=== PATIENT | female | born 1945 | race Caucasian/White ===

== ENCOUNTER 2016-10-19 08:11 | Observation (INO) | payer OTHER, MEDICARE ==
--- NOTE | 2016-10-19 09:41 | EDPHY ---
H & P Stated Complaint: HTN near syncope last night Time Seen by Provider: 10/19/16 09:24 HPI/ROS: CHIEF COMPLAINT: Near syncope HISTORY OF PRESENT ILLNESS: 71-year-old female lives by herself arrives via [employer] complaining of near syncopal episode last evening. She describes at 9:00 p.m. looking up at the alfie and feeling her surroundings dark in, lowered herself to the ground and symptoms resolved. She describes reproducible symptoms currently with hyper extension of the neck. Over the past few days she has been experiencing feeling off and intermittent dizziness which she has difficulty describing, however does not appear to be vertiginous in origin as she describes it present with no definitive pattern, not necessarily reproducible with movement of the head. She has not been experiencing headaches or chest pain or dyspnea. She denies visual field abnormality beyond the episode last evening however no spots or floaters in her visual field. No gait instability. No slurred speech. No urinary abnormality. No abdominal pain. No nausea or vomiting. No diarrhea. She contacted her primary care provider's office this morning in the recommend she go to the ER. I reviewed the patient's medication list at triage her only active medication is Travatan eyedrops. There are multiple other medications listed including Xarelto however this was only using her postoperative period post hip replacement several years ago. PRIMARY CARE PROVIDER:Dr. Woods, [place] REVIEW OF SYSTEMS: A ten point review of systems was performed and is negative with the exception of the items mentioned in the HPI PAST MEDICAL & SURGICAL HISTORY: Hip surgery. SOCIAL HISTORY:nonsmoker. No drug use. Intermittent glass of wine. Lives by herself PHYSICAL EXAM (Prior to examination, patient consented to physical exam, hands were washed and my usual and customary physical exam procedures followed) 1) GENERAL: Well-developed, well-nourished, alert and oriented. Appears to be in no acute distress. Answering questions appropriately 2) HEAD: Normocephalic, atraumatic 3) HEENT: Pupils equal, round, reactive to light bilaterally. Sclera anicteric. Nasopharynx, oropharynx, clear, no lesions. Signs of trauma Ears bilaterally with normal tympanic membranes. No evidence of infection. 4) NECK: Full range of motion, no meningeal signs. No bruit. With hyper extension of the neck she states things feels weird this resolved after normal anatomic alignment of the head and neck 5) LUNGS: Clear auscultation bilaterally, no wheezes, no rhonchi, no retractions. 6) HEART: Regular rate and rhythm, no murmur, no heave, no gallop. 7) ABDOMEN: No guarding, no rebound, no focal tenderness, negative McBurney's, 8) MUSCULOSKELETAL: Moving all extremities, no focal areas of tenderness, no obvious trauma. No peripheral edema or discoloration. 9) BACK: No CVA tenderness, no midline vertebral tenderness, no fluctuance, no step-off, no obvious trauma, no visual or palpable abnormality. 10) SKIN: No rash, no petechiae. 11) Psychiatric: Patient is oriented X 3, there is no agitation. 12) NEURO: Awake, alert, and oriented to person, place and time. Answers questions appropriately. There were no obvious focal neurologic abnormalities. No cerebellar dysfunction. Cranial nerves 2 through to 12 intact. Upper and lower extremities bilaterally with strength 5 / 5, reflexes 2+. DIFFERENTIAL DIAGNOSIS: in no particular include but limited to CVA, DE, vasculopathy - Personal History Current Tetanus/Diphtheria Vaccine: Yes Current Tetanus Diphtheria and Acellular Pertussis (TDAP): Yes - Medical/Surgical History Hx Asthma: No Hx Chronic Respiratory Disease: No Hx Diabetes: No Hx Cardiac Disease: No Hx Renal Disease: No Hx Cirrhosis: No Hx Alcoholism: No Hx HIV/AIDS: No Hx Splenectomy or Spleen Trauma: No Other PMH: HTN, Glaucoma, Cataracts - Social History Smoking Status: Former smoker Constitutional: Initial Vital Signs Temperature (C) 36.4 C 10/19/16 08:14 Heart Rate 86 10/19/16 08:14 Respiratory Rate 14 10/19/16 08:14 Blood Pressure 182/99 H 10/19/16 08:14 O2 Sat (%) 95 10/19/16 08:14 O2 Delivery Mode Room Air Allergies/Adverse Reactions: No Known Allergies Allergy (Unverified 07/21/14 11:21) Home Medications: Medication Instructions Recorded Calcium Carbonate [CALTRATE 600] 600 mg PO DAILY 07/21/14 Herbals/Supplements -Info Only 1 ea PO DAILY 07/21/14 Multivitamins [Multivitamin (*)] 1 each PO DAILY 07/21/14 Travoprost Z 0.004% [Travatan Z 1 drops EACHEYE HS 07/21/14 0.004% (*)] Naproxen Sodium [Aleve 220 MG (*)] 220 mg PO DAILY 10/19/16 Medical Decision Making - Diagnostics Imaging Results: Imaging Impressions Chest X-Ray 10/19/16 09:38 Impression: 1. Borderline cardiomegaly. No active cardiopulmonary disease seen. Head CT 10/19/16 09:41 Impression: There is no acute intracranial abnormality identified on this unenhanced CT evaluation. If there is further clinical concern regarding the patient's symptoms, MR imaging is suggested, if not otherwise contraindicated. The patient has also been scheduled for a CTA, which will be separately reviewed and reported. Findings were discussed with Betsy Medina PA-C at 11:14 AM, on 10/19/2016. Head CTA 10/19/16 09:41 Impression: 1. There is mild bilateral atherosclerotic calcific plaque involving each of the carotid bulbs. There is no hemodynamically significant ICA stenosis. 2. Patent bilateral vertebral arteries, with the left vertebral artery the more dominant of the 2 vessels. 3. Tortuosity with a slight "vascular kink" in the right innominate artery; however, there is patency of flow in the distal right innominate artery and the visualized right subclavian artery. CT ANGIOGRAPHY OF THE HEAD: The distal cervical, petrous, cavernous, and supraclinoid portions of the internal carotid arteries are patent. There is some atherosclerotic calcification associated with the parasellar portions of the ICAs without mechanical a significant stenosis. The A1 and A2 segments and the anterior communicating artery are patent. The M1, M2, M3 trifurcation vessels are patent. There are patent bilateral posterior communicating arteries which provide inflow into the posterior cerebral arteries ( circulatory variant). The right vertebral artery is a more diminutive vessel compared to the left, a normal variant. The posterior inferior and superior cerebellar arteries and the basilar artery are patent. There is no aneurysm, vascular malformation, significant eccentric stenosis, intraluminal thrombus, or dissection observed. The dural venous sinuses appear patent. Impression: Mild atherosclerotic changes associated with the cavernous carotid arteries. There is no intraluminal thrombus, or hemodynamically significant stenosis. CT Source Images: The visualized lung apices are clear. There are some minor dependent changes seen posteriorly. The visualized superior mediastinal structures are notable for narrowing of the crossing left innominate vein anterior to the common trunk of the left common carotid artery and the right innominate artery. There is asymmetric prominence of the left internal jugular vein, with several venous collaterals over the base of the left neck and the posterior upper left back. There is a 7 mm hypodense nodule in the right lobe of the thyroid gland. There is no cervical adenopathy. There are degenerative features of the cervical spine, with old mild compression deformities involving the anterior aspect of the C5 centrum and the posterior aspect of the C6 centra , with mild C4-C5, severe C5-C6, and moderate C6-C7 degenerative disk space narrowing. There is also severe left C5-C6 and moderate right C5-C6 neural foraminal stenosis secondary to osseous proliferative change. Impression: 1. Vascular narrowing of the crossing left innominate vein in the superior mediastinum with numerous venous collaterals and asymmetric enlargement of the left internal jugular vein compared to the right. 2. Multilevel degenerative changes in the cervical spine, most pronounced at C4- C5, C5-C6, and C6-C7, with severe left C5-C6 and moderate right C5-C6 neural foraminal stenosis. There are old compression deformities of the C5 and C6 centra. Findings were discussed with Betsy Medina PA-C at 11:49 AM, on 10/19/2016. Measurement of carotid stenosis is based on velocity parameters that correlate the residual internal carotid diameter with [place] Symptomatic Carotid Endarterectomy Trial (NASCET) based stenosis levels. Neck CTA 10/19/16 09:41 Impression: 1. There is mild bilateral atherosclerotic calcific plaque involving each of the carotid bulbs. There is no hemodynamically significant ICA stenosis. 2. Patent bilateral vertebral arteries, with the left vertebral artery the more dominant of the 2 vessels. 3. Tortuosity with a slight "vascular kink" in the right innominate artery; however, there is patency of flow in the distal right innominate artery and the visualized right subclavian artery. CT ANGIOGRAPHY OF THE HEAD: The distal cervical, petrous, cavernous, and supraclinoid portions of the internal carotid arteries are patent. There is some atherosclerotic calcification associated with the parasellar portions of the ICAs without mechanical a significant stenosis. The A1 and A2 segments and the anterior communicating artery are patent. The M1, M2, M3 trifurcation vessels are patent. There are patent bilateral posterior communicating arteries which provide inflow into the posterior cerebral arteries ( circulatory variant). The right vertebral artery is a more diminutive vessel compared to the left, a normal variant. The posterior inferior and superior cerebellar arteries and the basilar artery are patent. There is no aneurysm, vascular malformation, significant eccentric stenosis, intraluminal thrombus, or dissection observed. The dural venous sinuses appear patent. Impression: Mild atherosclerotic changes associated with the cavernous carotid arteries. There is no intraluminal thrombus, or hemodynamically significant stenosis. CT Source Images: The visualized lung apices are clear. There are some minor dependent changes seen posteriorly. The visualized superior mediastinal structures are notable for narrowing of the crossing left innominate vein anterior to the common trunk of the left common carotid artery and the right innominate artery. There is asymmetric prominence of the left internal jugular vein, with several venous collaterals over the base of the left neck and the posterior upper left back. There is a 7 mm hypodense nodule in the right lobe of the thyroid gland. There is no cervical adenopathy. There are degenerative features of the cervical spine, with old mild compression deformities involving the anterior aspect of the C5 centrum and the posterior aspect of the C6 centra , with mild C4-C5, severe C5-C6, and moderate C6-C7 degenerative disk space narrowing. There is also severe left C5-C6 and moderate right C5-C6 neural foraminal stenosis secondary to osseous proliferative change. Impression: 1. Vascular narrowing of the crossing left innominate vein in the superior mediastinum with numerous venous collaterals and asymmetric enlargement of the left internal jugular vein compared to the right. 2. Multilevel degenerative changes in the cervical spine, most pronounced at C4- C5, C5-C6, and C6-C7, with severe left C5-C6 and moderate right C5-C6 neural foraminal stenosis. There are old compression deformities of the C5 and C6 centra. Findings were discussed with Betsy Medina PA-C at 11:49 AM, on 10/19/2016. Measurement of carotid stenosis is based on velocity parameters that correlate the residual internal carotid diameter with [place] Symptomatic Carotid Endarterectomy Trial (NASCET) based stenosis levels. ED Course/Re-evaluation: 9:42 a.m.: This patient has a nonfocal neurologic examination. When she got up to go to the bathroom she had near syncopal symptoms and I had to hold her score her back to the bed. Discussed the case with secondary supervising physician Dr. Goodman will perform diagnostic studies including troponin, D- dimer, chest x-ray, imaging of the head and neck as she describes reproducible near syncopal symptoms with hyper extension of the neck, similar to last evening which he was looking up at the alfie. 12:15 p.m.: Patient was re-evaluated with serial examinations. On repeated instances and attempts at attempts to ambulate the patient she is unable to ambulate by herself noting that she feels near syncopal symptoms. Had a lengthy discussion with her and she describes symptoms which do not appear to be vertiginous in origin she describes feeling like the room is starting to black out. We discussed her imaging results and there was noted to be a kink in the right innominate artery which may be contributing to her reproducible symptoms with certain movements of the neck. Overall we recommended admission to the hospital and she is agreeable with this. I d consulted with , admit to Dr Valentin. - Data Points Laboratory Results: Laboratory Results 10/19/16 09:55 10/19/16 09:55 10/19/16 10/19/16 10/19/16 10:10 09:55 09:55 WBC RBC Hgb Hct MCV MCH MCHC RDW Plt Count MPV Neut % (Auto) Lymph % (Auto) Aiken % (Auto) Eos % (Auto) Baso % (Auto) Nucleat RBC Rel Count Absolute Neuts (auto) Absolute Lymphs (auto) Absolute Monos (auto) Absolute Eos (auto) Absolute Basos (auto) Absolute Nucleated RBC Immature Gran % Immature Gran # D-Dimer < 0.27 ug/mLFEU ug/mLFEU (0.00-0.50) Sodium 142 mEq/L mEq/L (134-144) Potassium 4.2 mEq/L mEq/L (3.5-5.2) Chloride 107 mEq/L mEq/L (97-110) Carbon Dioxide 24 mEq/l mEq/l (22-31) Anion Gap 11 mEq/L mEq/L (8-16) BUN 16 mg/dL mg/dL (7-23) Creatinine 0.5 mg/dL L mg/dL (0.6-1.0) Estimated GFR > 60 Glucose 94 mg/dL mg/dL (70-100) Calcium 9.9 mg/dL mg/dL (8.5-10.4) Troponin I < 0.012 ng/mL ng/mL (0-0.034) Urine Color PALE YELLOW Urine Appearance CLEAR Urine pH 7.0 (5.0-7.5) Ur Specific [place] 1.006 (1.002-1.030) Urine Protein NEGATIVE (NEGATIVE) Urine Ketones NEGATIVE (NEGATIVE) Urine Blood NEGATIVE (NEGATIVE) Urine Nitrate NEGATIVE (NEGATIVE) Urine Bilirubin NEGATIVE (NEGATIVE) Urine Urobilinogen NEGATIVE EU EU (0.2-1.0) Ur Leukocyte Esterase NEGATIVE (NEGATIVE) Urine RBC 1-3 /hpf /hpf (0-3) Urine WBC NONE SEEN /hpf /hpf (0-3) Ur Epithelial Cells NONE SEEN /lpf /lpf (NONE-1+) Urine Glucose NEGATIVE (NEGATIVE) 10/19/16 09:55 WBC 5.18 10^3/uL 10^3/uL (3.80-9.50) RBC 4.68 10^6/uL 10^6/uL (4.18-5.33) Hgb 15.7 g/dL g/dL (12.6-16.3) Hct 45.4 % % (38.0-47.0) MCV 97.0 fL fL (81.5-99.8) MCH 33.5 pg pg (27.9-34.1) MCHC 34.6 g/dL g/dL (32.4-36.7) RDW 12.1 % % (11.5-15.2) Plt Count 185 10^3/uL 10^3/uL (150-400) MPV 10.2 fL fL (8.7-11.7) Neut % (Auto) 64.5 % % (39.3-74.2) Lymph % (Auto) 24.9 % % (15.0-45.0) Aiken % (Auto) 7.7 % % (4.5-13.0) Eos % (Auto) 2.1 % % (0.6-7.6) Baso % (Auto) 0.4 % % (0.3-1.7) Nucleat RBC Rel Count 0.0 % % (0.0-0.2) Absolute Neuts (auto) 3.34 10^3/uL 10^3/uL (1.70-6.50) Absolute Lymphs (auto) 1.29 10^3/uL 10^3/uL (1.00-3.00) Absolute Monos (auto) 0.40 10^3/uL 10^3/uL (0.30-0.80) Absolute Eos (auto) 0.11 10^3/uL 10^3/uL (0.03-0.40) Absolute Basos (auto) 0.02 10^3/uL 10^3/uL (0.02-0.10) Absolute Nucleated RBC 0.00 10^3/uL 10^3/uL (0-0.01) Immature Gran % 0.4 % % (0.0-1.1) Immature Gran # 0.02 10^3/uL 10^3/uL (0.00-0.10) D-Dimer Sodium Potassium Chloride Carbon Dioxide Anion Gap BUN Creatinine Estimated GFR Glucose Calcium Troponin I Urine Color Urine Appearance Urine pH Ur Specific [place] Urine Protein Urine Ketones Urine Blood Urine Nitrate Urine Bilirubin Urine Urobilinogen Ur Leukocyte Esterase Urine RBC Urine WBC Ur Epithelial Cells Urine Glucose Departure - Departure Disposition: [facility] Acute Clinical Impression: Near syncope Condition: Fair
[2016-10-19 10:04] LABS: % IMMATURE GRANULYOCYTES 0.4 % (0.0-1.1); ABSOLUTE IMMATURE GRANULOCYTES 0.02 10^3/uL (0.00-0.10); ADD DIFF? NO; ADD MORPH? NO; ADD SCAN? NO; ATYPICAL LYMPHOCYTE FLAG 10 (0-99); FRAGMENT RBC FLAG 0 (0-99); HEMATOCRIT 45.4 % (38.0-47.0); HEMOGLOBIN 15.7 g/dL (12.6-16.3); LEFT SHIFT FLG 0 (0-99); LIPEMIA HEMOLYSIS FLAG 90 (0-99); MEAN CELL HEMOGLOBIN 33.5 pg (27.9-34.1); MEAN CELL HEMOGLOBIN CONCENTR. 34.6 g/dL (32.4-36.7); MEAN PLATELET VOLUME 10.2 fL (8.7-11.7); PLATELET CLUMPS FLAG 0 (0-99); PLATELET COUNT 185 10^3/uL (150-400); RED BLOOD CELL COUNT 4.68 10^6/uL (4.18-5.33); RED CELL DISTRIBUTION WIDTH 12.1 % (11.5-15.2)
--- NOTE | 2016-10-19 10:07 | CPEKG ---
Heart Rate: 69 RR Interval: 870 P-R Interval: 136 QRSD Interval: 88 QT Interval: 404 QTC Interval: 433 P [place]: 49 QRS [place]: 29 T Wave [place]: 28 EKG Severity - NORMAL ECG - EKG Impression: SINUS RHYTHM Electronically Signed By: Ashley Goodman 19-Oct-2016 15:14:51
[2016-10-19 10:21] LABS: ANION GAP 11 mEq/L (8-16); CALCIUM 9.9 mg/dL (8.5-10.4); CARBON DIOXIDE 24 mEq/l (22-31); CHLORIDE 107 mEq/L (97-110); CREATININE 0.5 mg/dL (0.6-1.0); GLOMERULAR FILTRATION RATE > 60; GLUCOSE 94 mg/dL (70-100); POTASSIUM 4.2 mEq/L (3.5-5.2); SODIUM 142 mEq/L (134-144)
[2016-10-19 10:21] LABS: COLOR PALE YELLOW; LEUKOCYTE ESTERASE,URINE NEGATIVE (NEGATIVE); NITRITE,URINE NEGATIVE (NEGATIVE)
[2016-10-19 10:23] LABS: TROPONIN I < 0.012 ng/mL (0-0.034)
[2016-10-19 10:28] LABS: WBC,URINE NONE SEEN /hpf (0-3)
[2016-10-19] MEDS ORDERED: IOPAMIDOL (ISOVUE 370) 100 ML BTL IV ONE (10:29)
[2016-10-19] MEDS ORDERED: ONDANSETRON DISINTEGRATING 4 MG TAB PO PRN (13:19)
[2016-10-19] MEDS ORDERED: ACETAMINOPHEN 325 MG TAB PO PRN (13:19)
[2016-10-19] MEDS ORDERED: ONDANSETRON 4 MG/2 ML VIAL IVP PRN (13:19)
[2016-10-19] MEDS ORDERED: hydrALAZINE 25 MG TAB PO PRN (15:48)
[2016-10-19] MEDS ORDERED: GADOBUTROL 10 ML VIAL IVP ONE (19:33)
--- NOTE | 2016-10-19 19:47 | GHP ---
[f rep st] HISTORY AND PHYSICAL DATE OF ADMISSION: 10/19/2016 CHIEF COMPLAINT: Near syncope. HISTORY OF PRESENT ILLNESS: The patient is a 71-year-old female with no significant past medical hi story, presenting with presyncopal symptoms and dizziness since Saturday. She says since that time s he has been feeling dizzy on an off. She has felt more foggy in the head and feels like there is so mething moving in the head, but nothing is moving. There is no sensation of objects moving around h er. She reports dizziness with bending down. Yesterday she was looking up at the alfie and felt her vision go black, thus she lowered herself to th e ground and symptoms resolved. She describes reproducible symptoms with hyperextension of her neck . It is not necessarily reproducible with movement of her head to the left and right. She denies a ny fevers, chills, or sweats. No headaches, no numbness or tingling. No chest pain or shortness of breath. No lower extremity edema. No weakness or dysarthria. She has felt off balance, but has n ot fallen. She normally does Pilates and Yoga several times a week, but she could not do her Pilate s this week due to dizziness. She states she has been eating and drinking okay. The patient reports yesterday her blood pressure was systolic 190/100. She said the last time she checked her blood pressure was 2 years ago. In the emergency room her blood pressure was as high as 148/104. Orthostatics were negative. REVIEW OF SYSTEMS: I completed a 10-point review of systems, negative except as noted in HPI. PAST MEDICAL HISTORY: Glaucoma. PAST SURGICAL HISTORY: 1. Left hip. 2. Knee arthroscopy. 3. Intra-ocular implants. FAMILY HISTORY: Mother of a heart attack. ALLERGIES: No known drug allergies. HOME MEDICATIONS: Atenolol eye drops, naproxen, multivitamin, herbal supplement, calcium, Travopros t eyedrops. PHYSICAL EXAM: VITAL SIGNS: Temperature 36.7, blood pressure 151/82 with a range of 148-182 over 9 9-104. Heart rate 70s, respirations 16, 95% on room air. GENERAL: Patient is sitting up in bed, n o acute distress. HEENT: PERRLA, EOMI. Moist mucous membranes. CV: Regular rate and rhythm. No murmurs, gallops, rubs. LUNGS: Clear to auscultation bilaterally. ABDOMEN: Soft, nontender, non distended. Positive bowel sounds. MUSCULOSKELETAL: 5/5 upper and lower extremity strength. NEURO LOGIC: 2 through 12 intact. Negative pronator drift. Normal reflexes bilaterally in ankles, knees . Normal [id number] test. Normal sensation to touch. PSYCH: Alert and oriented x3. LABORATORY: WBCs 5, hemoglobin 15, hematocrit 45, platelets 185, dimer is negative. Sodium ___ potassium 4.2, chloride 107, BUN 16, creatinine 0.6, glucose 94, troponin less than 0.012. Head CT: No acute intracranial abnormality. CTA: There is mild bilateral atherosclerotic calcific plaque involving each of the carotid bulbs. There is no hemodynamically significant ICA stenosis. There is tortuosity with a slight vascular kink in the right innominate artery; however, there is p atency of flow in the distal right innominate artery and visualized right subclavian. ASSESSMENT/PLAN: 1. Dizziness: Differential includes orthostasis, dehydration, infection versus acute stroke. CT h ead and CTA of the head and neck were unremarkable. There was a finding of a kink in the right inno minate artery; however, there was flow within that artery as well as the right subclavian. Suspect this is an incidental finding. With reported imbalance would be concern for cerebellar infarct. An MRI of brain is pending. Will discuss the case with Neurology. Could consider vascular etiology, will discuss further with Surgery. No evidence of infection. Afebrile without leukocytosis. Urina lysis is negative. Query if elevated blood pressure could be contributing. 2. Accelerated hypertension: Patient states she has no history of this. We will monitor overnight , p.r.n. hydralazine. If remains persistent will add an antihypertensive. 3. Glaucoma: Continue home eyedrops. 4. Diet regular. 5. Deep venous thrombosis prophylaxis: Low risk, ambulatory. DISPOSITION: Patient warrants observation admission given acute dizziness and concern for possible CVA. MRI is pending. /[id number]/MODL
[2016-10-19] MEDS ORDERED: TRAVOPROST Z 0.004% 2.5 ML OPHT.BTL EACHEYE SCH (21:00)
[2016-10-19] MEDS: TIMOLOL 0.5% 15 ML OPHT.BTL EACHEYE SCH (22:03)
[2016-10-20] MEDS: TIMOLOL 0.5% 15 ML OPHT.BTL EACHEYE SCH (09:00)
[2016-10-20] MEDS ORDERED: CALCIUM CARBONATE 600 MG PO SCH (09:00)
[2016-10-20] MEDS ORDERED: CALCIUM CARB W/VIT D 500 MG TAB PO SCH (09:00)
[2016-10-20] MEDS ORDERED: MULTIVITAMINS 1 EACH TAB PO SCH (09:00)
[2016-10-20] MEDS ORDERED: Herbals/Supplements -Info Only PO SCH (09:00)
[2016-10-20 11:55] VITALS: BP 126/75; PULSE 74; RESP 16; TEMP 97.5; O2SAT 91
--- NOTE | 2016-10-20 13:59 | GDS ---
[f rep st] DISCHARGE SUMMARY DISCHARGE DIAGNOSES: 1. Dizziness. 2. Accelerated hypertension. 3. History of glaucoma. HISTORY OF PRESENT ILLNESS: The patient is a 71-year-old female with no significant past medical history. She is very active with Pilates and yoga. Presenting with presyncopal symptoms and dizziness since Saturday. She says she will intermittently have dizziness, more noted when she looks up or bends over. She also reports feeling more foggy in the head. It feels like there is something moving in her head, but there is nothing moving around her. The day prior to admission, she was looking at the alfie and felt her vision go dim, but she did not lose it completely. She lowered herself to the ground and symptoms resolved. She denies any fevers, chills, or sweats. No recent URI symptoms. No chest pain, no shortness of breath. No weakness or dysarthria. She normally does Pilates and yoga several times a week, but not could not do her Pilates this week due to dizziness. She reports normal p.o. intake. The day prior to admission, she reported her blood pressure at home being 190/ 100. In the emergency room, her highest blood pressure was 148/104. She had negative orthostatics. HOSPITAL COURSE BY PROBLEM: 1. Dizziness: Differential includes orthostasis, dehydration, infection versus acute stroke. CT head and MRI were negative for hemorrhage. CTA did demonstrate a finding of a kink in the right innominate artery. I reviewed this with the radiologist and it shows that she does have no significant stenosis and good flow through the vertebral arteries. Suspect this is an incidental finding. Recommend follow up with Vascular Surgery to monitor this. Her urinalysis was negative. She remains afebrile, so infection less likely. EKG and troponin were negative. I wonder if her elevated blood pressure was contributing some of her symptoms. This morning, patient is that she was feeling much better. If symptoms recur, patient is to follow up with her PCP. 2. Accelerated hypertension: Patient said she had not checked her blood pressure in 2 years, up until a couple of days ago. During the rest of her stay here, blood pressures ranged systolic 120s to 150s. I recommend that she keep a log this weekend and followup follow up with her PCP. I wonder if this may have contributed to some of her symptoms. If high as an outpatient, I would recommend an antihypertensive. She will follow up with her PCP next week. 3. Glaucoma: Continue home eyedrops. DISPOSITION: The patient is stable for discharge. MEDICATIONS: No new medications. DISCHARGE INSTRUCTIONS: 1. Keep blood pressure log. 2. Follow up with her PCP at [facility]. /[id number]/MODL MTDD
== END 2016-10-20 13:49 | disposition home or self-care (01) ==
LOC: F3N 15:09
PROVIDERS: ADMIT Internal Medicine; ATTEND Internal Medicine
DX: R42 Dizziness and giddiness (principal); I10 Essential (primary) hypertension; I70.8 Atherosclerosis of other arteries; M50.921 Unspecified cervical disc disorder at C4-C5 level; M50.922 Unspecified cervical disc disorder at C5-C6 level
CPT/HCPCS: 70450; 70496; 70498; 70553; 71010; 93005; 97161; 99285; A9585; G0378; G8978; G8979; G8980; Q9967

== ENCOUNTER 2017-03-16 10:19 | Inpatient (IN) | payer OTHER, MEDICARE ==
--- NOTE | 2017-03-16 10:33 | EDPHY ---
General Narrative: CHIEF COMPLAINT: Fall exercising, right shoulder pain HISTORY OF PRESENT ILLNESS: Patient was exercising just prior to arrival when she tripped, landing on her right side. She complains of pain in the right shoulder. She complains of pain in the right hip and left groin. She attributes the groin hip pain to soft tissue, but the shoulder is in severe pain. Painful ambulation. Unable to move the shoulder due to pain. No numbness or tingling. No head strike or loss of consciousness no neck pain. No back or chest pain. No abdominal pain. No pain in the lower left or right legs. No other associated complaints or modifying factors. She arrives by EMS and is seen at time of arrival with a sling on the right upper extremity. ESTABLISHED ORTHOPEDIST: None currently. Remote MARIAN on the left REVIEW OF SYSTEMS: Ten systems reviewed and are negative unless otherwise noted in the HPI PAST MEDICAL HISTORY: Arthritis, glaucoma PAST SURGICAL HISTORY: Left hip arthroplasty SOCIAL HISTORY: Nonsmoker. Retired [employer] HISTORY: Noncontributory EXAMINATION General Appearance: Alert, no distress Cardiovascular: Pulses normal throughout. Symmetric radial pulses 2+. Symmetric DP pulses 2+. Brisk cap refill Cardiac: Regular rhythm. No murmur Respiratory: Lungs are clear in all pineda. No retractions or distress Neurological: A&O, sensory symmetric, strength symmetric. No wrist drop of the right upper extremity. Skin: Warm and dry, no rash no lacerations abrasions or contusions Extremities: Tenderness of the right shoulder with apparent step-off deformity. No tenderness of the right elbow, wrist or hand. Range of motion of the left upper extremity is fully intact. Range of motion of the lower extremities is intact with painful abduction of both hips. She is neurovascular intact distal to the right shoulder pain. Psychiatric: Mood and affect normal DIFFERENTIAL DIAGNOSES: Including but not limited to shoulder dislocation, humeral fracture, hip fracture, hip strain, pelvic fracture, a muscular strain MDM: 10:25 a.m. Mechanical fall with right shoulder pain. She is neuro intact distally. X-ray has been ordered. No other areas of injury or concern. 10:40 a.m. X-ray as read by me reveals a anterior dislocation. I will attempt closed reduction with IV fentanyl and intra-articular lidocaine. No conscious sedation at this time. 11:02 a.m. 100 mcg of fentanyl infused. I injected 7 cc of plain lidocaine into the joint applied traction, scapular manipulation and she does appear to have reduced. I will obtain an x-ray to confirm. She remains neurovascular intact. 11:10 a.m. X-ray performed at bedside as read by me, reveals a well reduced shoulder. I do not appreciate any fracture. She remains neuro intact will place her in a sling. 11:35 a.m. Patient re-evaluated. The x-ray has been read as successful reduction. No obvious fracture. She remains neuro intact. Her pain is minimal at this time. We discussed precautions for the shoulder. We discussed nonweightbearing of the right shoulder. We discussed orthopedic follow-up early next week. We discussed ED precautions. She is comfortable this plan and discharged home stable condition. 12:15 p.m. Patient was initially placed up for disposition. However, when she was ambulated at time of discharge she is having too much pain when doing so. The pain is located the right groin and hip. On examination this appears to be the adductor muscles, but I will order an x-ray to evaluate the hip. She is agreeable with this. 12:55 p.m. X-ray as read by me reveals no fracture or dislocation. Attempt to ambulate the patient again. 1:05 p.m. Patient is feeling her road test. And additionally, I have now discussed the case with radiologist. He has pointed out a left superior pubic ramus fracture. I did not see this on 1st examination of the x-ray. He does agree that there is no hip fracture. The left hip hardware appears to be intact. I will contact hospitalist for admission as this is a nonsurgical fracture, but she does live at home alone and will need evaluation for DM in physical therapy. She is agreeable with this plan. She is neuro intact. 1:15 p.m. Case discussed with hospitalist Latricia Fairchild. Patient will be admitted to Dr. Montejo. I will consult Orthopedics for the injuries. She is admitted in stable condition. 2:00 p.m. Case discussed with on-call orthopedist Dr. Cervantes. He will provide consultation. Patient is to be toe-touch weight-bearing with walker. PROCEDURE: Closed reduction of right shoulder Consent: Verbal Location: Right shoulder Anesthesia: 100 mcg IV fentanyl. Lidocaine plain, 1%. 7 mL as intra- articular injection. No procedural sedation Procedure: Verbal consent obtained prior to administration of the IV fentanyl. Radial pulses intact prior to procedure. Down retraction, scapular manipulation and physical manipulation of the humeral head were performed. There was good reduction palpable. Radial pulses intact postprocedure. Feeling significantly better. Complications: None Post-reduction film: Successful reduction. - Diagnostics Imaging Results: Imaging Impressions Shoulder X-Ray 03/16/17 10:24 Impression: 1. Anterior dislocated right shoulder. 2. No definite fracture. Shoulder X-Ray 03/16/17 11:02 Impression: 1. No residual dislocation of the right shoulder. 2. No definite fracture. - History Smoking Status: Former smoker - Objective Vital Signs: Initial Vital Signs Temperature (C) 97.5 F 03/16/17 10:19 Heart Rate 63 03/16/17 10:19 Respiratory Rate 16 03/16/17 10:19 Blood Pressure 158/89 H 03/16/17 10:19 O2 Sat (%) 99 03/16/17 10:19 O2 Delivery Mode Room Air O2 (L/minute) 2 Allergies/Adverse Reactions: No Known Allergies Allergy (Unverified 07/21/14 11:21) Home Medications: Medication Instructions Recorded Calcium Carbonate [CALTRATE 600] 600 mg PO DAILY 07/21/14 Herbals/Supplements -Info Only 1 ea PO DAILY 07/21/14 Multivitamins [Multivitamin (*)] 1 each PO DAILY 07/21/14 Travoprost Z 0.004% [Travatan Z 1 drops EACHEYE HS 07/21/14 0.004% (*)] Timolol 0.5% [TIMOPTIC 0.5% (*)] 1 drops EACHEYE BID 10/19/16 Lisinopril 03/16/17 Medications Given: Discontinued Medications Fentanyl (Sublimaze) 100 mcg IVP EDNOW ONE Stop: 03/16/17 10:50 Last Admin: 03/16/17 10:53 Dose: 100 mcg Departure - Departure Disposition: [facility] Inpatient Acute Clinical Impression: Dislocation, shoulder closed Qualifiers: Encounter type: initial encounter Laterality: right Qualified Code(s): S43.004A - Unspecified dislocation of right shoulder joint, initial encounter Fracture of superior ramus of left pubis Qualifiers: Encounter type: initial encounter Fracture type: closed Qualified Code(s): S32.512A - Fracture of superior rim of left pubis, initial encounter for closed fracture Condition: Good Instructions: Shoulder Dislocation (ED) Additional Instructions: 1. Nonweightbearing of the right shoulder until seen by Orthopedics 2. Pain medication as prescribed as needed 3. ED precautions as discussed 4. No driving until seen by Orthopedics Referrals: Patient,NotPresent [Unknown] - As per Instructions Shane Cervantes MD [Medical Doctor] - As per Instructions Prescriptions: oxyCODONE HCL/ACETAMINOPHEN [Percocet 5-325 mg Tablet] 1 each PO Q4-6PRN PRN # 19 tablet PRN Reason: Pain, Breakthrough
[2017-03-16] MEDS ORDERED: fentaNYL 100 MCG/2 ML INJ IVP ONE (10:49)
[2017-03-16] MEDS ORDERED: ONDANSETRON 4 MG/2 ML VIAL IVP PRN (14:41)
[2017-03-16] MEDS ORDERED: ONDANSETRON DISINTEGRATING 4 MG TAB PO PRN (14:41)
[2017-03-16] MEDS ORDERED: HYDROmorphONE/DILAUDID 1 MG/ML INJ IVP PRN (14:41)
[2017-03-16] MEDS ORDERED: ACETAMINOPHEN 325 MG TAB PO PRN (14:41)
[2017-03-16] MEDS: OXYCODONE/APAP 5/325 TAB PO PRN ×2 (15:33→20:03)
--- NOTE | 2017-03-16 15:53 | GHP ---
[f rep st] HISTORY AND PHYSICAL DATE OF ADMISSION: 03/16/2017 PRIMARY CARE PHYSICIAN: [facility]. CHIEF COMPLAINT: Right shoulder dislocation and pelvic pain. HISTORY OF PRESENT ILLNESS: The patient is a pleasant 71-year-old female, with a past medical histor y of glaucoma and hypertension, who presented to [facility] emergency room after havi ng a fall while she was exercising. X-ray imaging of her right shoulder, showed an anterior dislocat ion, this was addressed in the emergency room and follow up x-ray of the right shoulder showed no res idual dislocation. She also received an x-ray of her hip, which revealed left superior pubic ramus f racture. The patient was making arrangements to go home from the emergency room, however, she had si gnificant pain and was unable to adequately ambulate, as such she is being admitted for pain control and also to work with PT and OT to formulate a plan for discharge from the hospital. PAST MEDICAL HISTORY: 1. Hypertension. 2. Glaucoma. PAST SURGICAL HISTORY: 1. Total left hip arthroplasty. 2. Knee arthroscopy. 3. Intraocular implants. FAMILY HISTORY: Mother and father are both , they in their 90s of "old age." ALLERGIES: No known drug allergies. MEDICATIONS: 1. Lisinopril 5 mg daily. 2. Timolol 0.5% eyedrops. 3. Travoprost Z 0.004% eyedrops daily. SOCIAL HISTORY: The patient is a nonsmoker. Full code status. REVIEW OF SYSTEMS: CONSTITUTIONAL: No complaints of any fever or chills. ENT: No recent upper res piratory illnesses. CARDIOVASCULAR: No complaints of chest pains, palpitations. There were no sync opal episodes associated with the fall. RESPIRATORY: No complaints of shortness of breath or productive cough. GI: No nausea, vomiting, diarrhea or constipation. : No report of any difficulty with urination. NEUROLOGIC: No complaints of headache or focal weak. HEMATOLOGIC: No history of any deep vein th rombosis or pulmonary embolism. PSYCHIATRIC: No history of anxiety or depression. ENDOCRINE: No h istory of diabetes or thyroid abnormalities. SKIN: No new skin rashes. MUSCULOSKELETAL: Other donna n the right hip and right shoulder, no other focal joint pains. PHYSICAL EXAMINATION: VITAL SIGNS: Temperature 36.8, blood pressure 136/62, heart rate 86, respirat ions 16, satting 95% on room air. GENERAL: The patient wake, alert, conversant. Able to provide a good history. No acute distress. HEENT: Extraocular movements appear intact. No scleral icterus. Mucous membranes moist. NECK: Supple no thyroid enlargement is appreciated. CHEST: Clear on ausc ultation. Normal respiratory effort. HEART: Regular. No murmurs appreciated. ABDOMEN: Nondistend ed. normal bowel sounds. Nontender with palpations. : No Monique catheter in place. EXTREMITIES: No significant pitting edema. NEUROLOGIC: The patient is able to lift her right leg against pressu re, I would rate it as 5/5 strength, although, she reports significant pain with weight bearing. Oth erwise, 5/5 strength in left extremity, limited testing of the right secondary to bracing. LABS: No current labs. IMAGING: As detailed in the HPI. ASSESSMENT: 1. Right hip pain. Imaging is showing a left superior pubic ramus fracture. We will need to see ho w she does with physical therapy and occupational therapy, and pain control over the next 24 hours. Continue with oxycodone/acetaminophen 5/325 one to two tablets every 4 hours as needed for pain. We also do have an IV Dilaudid ordered in case of severe or breakthrough pain. 2. Right shoulder dislocation. The pain seems reasonably well controlled currently. Continue with brace. We will also touch base with orthopedic surgery to determine if there is any additional recom mendations regarding the right shoulder and right hip. 3. Hypertension. We will plan on continuing her current Lisinopril at 5 mg daily. 4. Bowel and bladder. We will plan on starting MiraLAX and Metamucil daily, anticipating the need o f narcotic pain medications for adequate pain relief. 5. Deep vein thrombosis prophylaxis. We will obtain a CBC in the morning, if there is no concern ab out bleeding with the pelvic fracture, then we will plan on starting heparin. DISPOSITION: Will depend on how she does with PT and OT over the coming 24 hours and also to see whe re we are at with her pain control. I anticipate she will be her for over 2 midnights, probably 3 to 5 days to work on her mobility and p ain control. Copy requested to: [facility] /[id number]/MODL
--- NOTE | 2017-03-16 16:22 | PDMN ---
Medical Necessity Medical necessity: C/M review: est. > 2 MN LOS for eval and TX of acute and persistent right hip pain, left superior pubic ramus fracture, right shoulder dislocation reduced in ED, requiring ongoing pain management, acute inpt PT/OT, multiple comorbidities including fall while exercising just prior to this admission, hypertension, glaucoma per H/P.
[2017-03-16 19:31] VITALS: RESP 16
[2017-03-16] MEDS: TIMOLOL 0.5% 15 ML OPHT.BTL EACHEYE SCH (20:13)
[2017-03-16] MEDS ORDERED: TRAVOPROST Z 0.004% 2.5 ML OPHT.BTL EACHEYE SCH (21:00)
[2017-03-17] MEDS: OXYCODONE/APAP 5/325 TAB PO PRN ×2 (02:44→10:33)
[2017-03-17 05:18] LABS: % IMMATURE GRANULYOCYTES 0.3 % (0.0-1.1); ABSOLUTE IMMATURE GRANULOCYTES 0.02 10^3/uL (0.00-0.10); ADD DIFF? NO; ADD MORPH? NO; ADD SCAN? NO; ATYPICAL LYMPHOCYTE FLAG 0 (0-99); FRAGMENT RBC FLAG 0 (0-99); HEMATOCRIT 36.6 % (38.0-47.0); HEMOGLOBIN 13.1 g/dL (12.6-16.3); LEFT SHIFT FLG 0 (0-99); LIPEMIA HEMOLYSIS FLAG 90 (0-99); MEAN CELL HEMOGLOBIN 34.8 pg (27.9-34.1); MEAN CELL HEMOGLOBIN CONCENTR. 35.8 g/dL (32.4-36.7); MEAN CELL VOLUME 97.3 fL (81.5-99.8); MEAN PLATELET VOLUME 10.3 fL (8.7-11.7); PLATELET CLUMPS FLAG 0 (0-99); PLATELET COUNT 155 10^3/uL (150-400); RED BLOOD CELL COUNT 3.76 10^6/uL (4.18-5.33); RED CELL DISTRIBUTION WIDTH 12.2 % (11.5-15.2)
[2017-03-17 05:27] LABS: ANION GAP 9 mEq/L (8-16); CALCIUM 9.2 mg/dL (8.5-10.4); CARBON DIOXIDE 26 mEq/l (22-31); CHLORIDE 104 mEq/L (97-110); CREATININE 0.6 mg/dL (0.6-1.0); GLOMERULAR FILTRATION RATE > 60; GLUCOSE 94 mg/dL (70-100); POTASSIUM 4.4 mEq/L (3.5-5.2); SODIUM 139 mEq/L (134-144)
[2017-03-17 08:36] VITALS: O2SAT 91
--- NOTE | 2017-03-17 08:50 | GCON ---
[f rep st] CONSULTATION ORTHOPEDIC CONSULTATION DATE OF CONSULTATION: 03/17/2017 REASON FOR CONSULTATION: 1. Pubic rami fracture, left. 2. Status post closed reduction, first time dislocation right shoulder. HISTORY OF PRESENT ILLNESS: The patient is a 71-year-old female, who was working out with her traine r doing some lateral shuffling movements in the gym when she fell and landed directly onto the right side of her body and sustained a right shoulder dislocation that was closed reduced in the emergency department. X-ray of the pelvis showed an intact left total hip prosthesis with a minimally displace d superior rami fracture near her symphysis pubis on the left. No acute fractures noted in the right hip. She was admitted to the hospitalist for pain management and I was consulted to consult on furt her treatment for her orthopedic injuries. PAST MEDICAL HISTORY: Hypertension and glaucoma. PAST SURGICAL HISTORY: Left total hip and knee scope. ALLERGIES: No known drug allergies. MEDICATIONS: Lisinopril and eyedrops. SOCIAL HISTORY: [place] in a 6th floor apartment, 1 level, does not smoke, occasional alcohol use. REVIEW OF SYSTEMS: No shortness of breath. No chest pain. Otherwise, review of systems is unremark able. PHYSICAL EXAM: GENERAL: A healthy-appearing 71-year-old female. She is alert and oriented x3. VIT AL SIGNS: This morning, blood pressure is 101/59, heart rate 74, oxygen saturation is 90% on room ai r, 16 breaths per minute, temperature is 36.9. HEENT: Normocephalic, atraumatic. Extraocular muscl es intact. NECK: Supple. There is no lymphadenopathy. No JVD. CHEST: Clear to auscultation. CA RDIOVASCULAR: Regular rate and rhythm. ABDOMEN: Soft, nontender, nondistended. EXTREMITIES: Righ t shoulder is in a sling, very little swelling. There is no bruising. Minimal tenderness anteriorly over the shoulder. Passive range of motion to forward flexion all the way to 100 degrees without di fficulty. Full range of motion the elbow, wrist and hand. Brachial plexus motor and sensation are i ntact to the right upper extremity. Turning my attention to both hips, complaining of mainly pain in the inner aspect of the right thigh as well as groin. No pain with passive movement of the right hi p to 100 degrees of flexion, 40 degrees of internal and external rotation. Left hip has excellent ra nge of motion as well. Full extension to 100 degrees of flexion, 30 degrees of internal rotation, 30 degrees of external rotation. Motor strength is preserved lower extremities at 4+/5. X-RAYS: Pre and post-reduction films of the shoulder: No acute fracture seen. Humeral head is well centered in the glenoid on reduction films and AP pelvis and a frogleg lateral of the right. She armenta s a total hip arthroplasty on the left. No signs of loosening. It is well-positioned. There is a m inimally displaced superior rami fracture on the left. No acute fractures are noted on the right hip or pelvis. ASSESSMENT: 1. Status post right shoulder dislocation, closed reduced in the emergency department. 2. Nondisplaced superior rami fracture, left. PLAN: We will mobilize her with physical therapy. She may be weightbearing as tolerated. She may u se the right arm for weightbearing. I just want her to avoid external rotation greater than 30 degre es for the first 6 weeks to protect that shoulder reduction. I will see her back in the office in 2- 3 weeks with x-rays of her pelvis and to start physical therapy for her shoulder. /[id number]/MODL
[2017-03-17] MEDS ORDERED: POLYETHYLENE GLYCOL 3350 17 GM PKT PO SCH (09:00)
[2017-03-17] MEDS ORDERED: PSYLLIUM METAMUCIL 1 PKT PO SCH (09:00)
[2017-03-17] MEDS ORDERED: LISINOPRIL 5 MG TAB PO SCH (09:00)
[2017-03-17] MEDS: TIMOLOL 0.5% 15 ML OPHT.BTL EACHEYE SCH (10:25)
[2017-03-17 11:50] VITALS: BP 115/57; PULSE 78; TEMP 99.1
[2017-03-17] MEDS ORDERED: traMADol 50 MG TAB PO PRN (13:23)
--- NOTE | 2017-03-17 13:31 | PDIAF ---
- Diagnosis Diagnosis: Pelvic Fracture, Right Shoulder Dislocation Code Status: Full Code - Medication Management Discharge Medications: Medications to Continue on Transfer Herbals/Supplements -Info Only 1 ea PO DAILY 07/21/14 [Last Taken 07/21/14] Multivitamins [Multivitamin (*)] 1 each PO DAILY 07/21/14 [Last Taken 07/21/14] Travoprost Z 0.004% [Travatan Z 0.004% (*)] 1 drops EACHEYE HS 07/21/14 [Last Taken 10/18/16] Timolol 0.5% [TIMOPTIC 0.5% (*)] 1 drops EACHEYE BID 10/19/16 [Last Taken 09:00 morning dose] Lisinopril [Zestril 5 mg (*)] 5 mg PO DAILY 03/16/17 [Last Taken Unknown] Naproxen Sodium [Aleve 220 MG (*)] 220 mg PO DAILY 03/16/17 [Last Taken Unknown] Acetaminophen [Tylenol 325mg (*)] 650 mg PO Q4HRS PRN tab 03/17/17 [Last Taken Unknown] Lisinopril [Zestril 5 mg (*)] 5 mg PO DAILY tab 03/17/17 [Last Taken Unknown] Polyethylene Glycol 3350 [Miralax 17 gm (*)] 17 gm PO DAILY pkt 03/17/17 [Last Taken Unknown] Psyllium Seed [Metamucil (*)] 1 each PO DAILY pkt 03/17/17 [Last Taken Unknown] oxyCODONE/APAP 5/325 [Percocet 5/325 (*)] 1 - 2 tab PO Q4HRS PRN #30 tab [Last Taken Unknown] traMADol [Ultram 50 mg (*)] 50 mg PO Q6HRS PRN #30 tab 03/17/17 [Last Taken Unknown] Discharge Medications: Refer to the Discharge Home Medication list for PRN reason. - Orders Services needed: Home Care, Physical Therapy, Occupational Therapy Home Care Face to Face: I certify that this patient was under my care and that I had the required [id number] encounter meeting the encounter requirements on the discharge day. My findings support the fact that the patient is homebound as defined in Home Care Face to Face Continued: CMS Chapter 7 Medicare Benefits Manual 30.1.1 , The condition of the patient is such that there exists a normal inability to leave home and consequently, leaving home would require a considerable and taxing effort. Diet Recommendation: no restrictions on diet Diet Texture: Regular Texture Diet - Follow Up Care Current Providers and Referrals: Shane Cervantes MD [Medical Doctor] - As per Instructions Patient,NotPresent [Unknown] - As per Instructions
--- NOTE | 2017-03-17 14:31 | GDS ---
[f rep st] DISCHARGE SUMMARY IN HOSPITAL CONSULTANTS: Dr. Cervantes with Orthopedic Surgery. DISCHARGE DIAGNOSES: 1. Right shoulder dislocation. 2. Left superior pubic ramus fracture. HISTORY OF PRESENT ILLNESS: The patient is a pleasant 71-year-old female with a past medical history of hypertension, who was exercising when she sustained a fall. She did not have any associated sync opal episode, dizziness or loss of consciousness. In the emergency room, she was evaluated and, by x-ray, was found to have a dislocation of the right shoulder as well as a left superior pubic ramus fracture. The shoulder dislocation was reduced succe ssfully in the emergency room, documented by a followup x-ray. However, due to the significant amoun t of pain she was in when trying to ambulate, it was decided to admit her for pain control and physic al therapy. HOSPITAL COURSE: On the second hospital day, she did have physical therapy and occupational therapy, and did reasonably well, but she did need the assistance of a walker. She states that her daughter is purchasing her a walker at the current time, so this will be ready for her when she returns home f rom the hospital. The patient asks to be discharged today. She states her pain has been reasonably well controlled and she feels comfortable with ambulating with the assistance of the walker that she will have available. We did discuss physical therapy and occupational therapy, and due to the limite d mobility at this point in time, I am recommending initial home evaluation with PT and OT, and then if things are going well, she can eventually progress into outpatient PT. Regarding pain control, she does normally take Naproxen daily for arthritis pain. I think she can in crease this to two tablets twice a day, if she needs additional pain relief. I did also, however, gi ve her a prescription for tramadol as well as oxycodone/acetaminophen, should she need some added marixa n relief. The patient states that she prefers not to take narcotic pain medications, but we discusse d that she may want to have that available to her in case her pain does become more severe when she g ets home and more ambulatory. Hospital course by problem: 1. Left superior pubic ramus fracture. Dr. Cervantes did consult during the hospitalization and has recommended weightbearing as tolerated and continuation of physical therapy. 2. Right shoulder dislocation. This has been successfully reduced in the emergency room. Per Dr. Yocasta weldon, she may use the right arm for weightbearing. However, he does recommend that she avoid exte rnal rotation greater than 30 degrees for the first 6 weeks to protect the shoulder reduction. A fol lowup with Dr. Cervantes is recommended in 2-3 weeks. 3. Hypertension. She was continued on lisinopril 5 mg daily. 4. Bowel and bladder. I did encourage daily use of MiraLAX and Metamucil if she is going to be need ing regular narcotic pain medications. 5. DVT prophylaxis. In light of her increased ambulation today and mobility, I think she will be lo wer risk. On date of discharge, temperature is 37.3, blood pressure 115/57, heart rate 76, respirations 16, sat urating 91% on room air. In general, the patient is resting comfortably in bed, in no acute distress . Heart regular. No murmurs. Lungs: Normal respiratory effort, clear. Abdomen nondistended. Ext remities: No significant pitting edema. Notable studies: Shoulder x-ray showed anterior dislocation of the right shoulder. No definite frac ture seen. Hip x-ray showed left superior pubic ramus fracture. DISCHARGE MEDICATIONS: 1. Acetaminophen 650 mg every 4 hours as needed for mild pain. 2. Tramadol 50 mg every 6 hours as needed for moderate pain. 3. Oxycodone/acetaminophen 5/325 one to two tablets every 4 hours as needed for severe pain. 4. MiraLAX 17 g daily. 5. Metamucil one tablet daily. 6. Lisinopril 5 mg daily. 7. Naproxen 220 mg daily. 8. Timolol 0.5% eye drops. 9. Travoprost Z 0.004% eye drops. DISCHARGE INSTRUCTIONS: A followup with Dr. Cervantes is recommended in 2-3 weeks, and I recommend [facility] followup with Dr. Porter as previously scheduled. TIME SPENT: 35 minutes of time dedicated to discharge efforts. /[id number]/MODL
--- NOTE | 2017-03-17 14:35 | ASMTCMCOM ---
CM Note CM Note Notes: 71 year old female fell and admitted for R pubic ramus fx and R shoulder dislocation. She has a hx of HTN and glaucoma, lives alone. Therapies recommending [facility] PT/OT. Patient would like to be discharged home with [facility] PT/OT. [facility] contacted and will follow. Patient has been discharged today. [id number] to transport home at 3:00PM. Date Signed: 03/17/2017 02:35 PM Electronically Signed By:Ana Salazar LCSW
--- NOTE | 2017-03-17 18:54 | ASDISCHSUM ---
Discharge Information Plan Status:Home with Home Health Medically Cleared to Leave:03/17/2017 Discharge Date:03/17/2017 02:48 PM CM D/C Disposition:Home Health Service ADT D/C Disposition:Home, Routine, Self-Care Projected Discharge Date:03/17/2017 03:00 PM Transportation at D/C:Family Discharge Delay Reason: Follow-Up Date:03/17/2017 03:00 PM Discharge Slot:2 - 12:01 pm - 18:00 pm Final Diagnosis:Fall: R pubic ramus fx, R shoulder dislocation Placement Information Referral Type:*Home Health Care Services Referral ID:[id number] Provider Name:[facility] Care Address 1[address] [facility] [address] Address 2: City:[place] Selection Factors: State:[place] Patient Contact Information Contact Name:VIDAL Relationship:Son Address: Work Phone: City: Alternate Phone: State/Zip Code: Email: Financial Information Financial Class: Primary Plan Desc:MEDICARE INPATIENT Primary Plan Number:[id number] Secondary Plan Desc:[employer]/M[employer] SUPPLEMENT Secondary Plan Number:[id number] Assessment Information [facility] CM Progress Note CM Note CM Note Notes: 71 year old female fell and admitted for R pubic ramus fx and R shoulder dislocation. She has a hx of HTN and glaucoma, lives alone. Therapies recommending [facility] PT/OT. Patient would like to be discharged home with [facility] PT/OT. [facility] contacted and will follow. Patient has been discharged today. [id number] to transport home at 3:00PM. Date Signed: 03/17/2017 02:35 PM Electronically Signed By:Ana Salazar LCSW Intervention Information
== END 2017-03-17 14:48 | disposition home or self-care (01) | DRG 563 ==
LOC: EDUNIT# → F3N 13:44
PROVIDERS: ADMIT Internal Medicine; ATTEND Internal Medicine
PROC: 0RSJXZZ Reposition Right Shoulder Joint, External Approach (ICD-10-PCS; principal; 2017-03-16)
DX: S43.004A Unspecified dislocation of right shoulder joint, initial encounter (principal); S32.512A Fracture of superior rim of left pubis, initial encounter for closed fracture; M25.551 Pain in right hip; Y93.A9 Activity, other involving cardiorespiratory exercise; Y92.89 Other specified places as the place of occurrence of the external cause; W18.30XA Fall on same level, unspecified, initial encounter; Z96.642 Presence of left artificial hip joint; I10 Essential (primary) hypertension; H40.9 Unspecified glaucoma
CPT/HCPCS: 97161-GP; 97165-GO; 97530-GP; G8978-GP-CI; G8979-GP-CI; G8980-GP-CI; G8987-GO-CI; G8988-GO-CI; G8989-GO-CI; J3010